=== PATIENT | female | born 1985 | race African-American/Black ===

== ENCOUNTER 2017-01-28 19:17 | Emergency (ER) | payer OTHER ==
[~2017-01-28] VITALS: Ht 162.6 cm; Wt 68.2 kg
[~2017-01-28 19:17] MED LIST: ACET1TAB40 PO; AUG875 PO; BACTDS PO; CEPH-443 PO; IBUP-1542 PO; IBUP800T25 PO; ONDA4TAB35 PO
[2017-01-28 19:22] VITALS: Ht 162.6 cm; Wt 68.2 kg
[2017-01-28] MEDS ORDERED: ONDANSETRON (ODT) 4 MG TAB ODT STA ×2 (21:17→22:22)
[2017-01-28] MEDS ORDERED: HYDROCODONE/APAP (5/325) TAB PO ONE (21:30)
[2017-01-28] MEDS ORDERED: LIDOCAINE 1%/EPI 30 ML INJ INJ STA (21:35)
[2017-01-28] MEDS ORDERED: BUPIVACAINE 0.5% 30 ML VIAL INJ ONE (22:00)
[2017-01-28] MEDS ORDERED: HYDR-906 PO (22:08)
--- NOTE | 2017-01-28 22:08 | RADRPT ---
PROCEDURE: Left knee. CLINICAL INDICATION: Pain. TECHNIQUE: 4 views including AP, lateral and oblique views of the left knee were obtained. The i mages reviewed on a PACS workstation. COMPARISON: 06/06/2015. FINDINGS: There is no fracture, dislocation or bone destruction. There is no significant joint space narrowin g. There is a small joint effusion. Bone mineralization is within normal limits. There is no radio paque foreign body or abnormal calcification. IMPRESSION: No evidence of fracture. Small joint effusion. .Chris Granados MD, Date Time Electronically viewed and signed by .Chris Granados MD, on 01/28/2017 22:07 .T/
[2017-01-28] MEDS ORDERED: HYDROmorphONE 1 MG/ML SYG IM STA (22:22)
--- NOTE | 2017-01-29 00:05 | ERD ---
ER Documentation Chief Complaint Chief Complaint chronic left knee pain HPI 31-year-old female complaining of chronic left knee pain. She states that she had a fractured knee 2 years ago and ever since has had continued problem. Denies any acute injuries today but feels her knee locked up on her. Patient is doing physical therapy with no alleviation of symptoms. Has not taken medications for symptoms. Denies any numbness or tingling to extremities. Is unable to flex and extend at the knee secondary to pain. Surgical history denies. Denies medical problems. Allergies to morphine ROS All systems reviewed and are negative except as per history of present illness. Medications Home Meds Active Scripts Hydrocodone/Acetaminophen ([place] 5-325 Tablet) 1 Each Tablet, 1 TAB PO Q6H Y for PAIN, #7 TAB Prov:BONITA WOLF PA-C 01/28/17 Ibuprofen* (Motrin*) 800 Mg Tab, 800 MG PO Q6H Y for PAIN AND OR ELEVATED TEMP, #30 TAB Prov:MACKENZIE CROSS MD 10/31/15 Sulfamethoxazole-Trimethoprim* (Bactrim* DS) 800-160 Mg Tab, 1 TAB PO BID for 7 Days, TAB Prov:MACKENZIE CROSS MD 10/31/15 Cephalexin* (Keflex*) 500 Mg Capsule, 500 MG PO QID for 7 Days, CAP Prov:MACKENZIE CROSS MD 10/31/15 Ondansetron Hcl* (Zofran* ODT) 4 mg -ODT Tab.disper, 4 MG PO Q6 Y for NAUSEA AND /OR VOMITING, #10 TAB Prov:GIOVANNY VIRK PA-C 07/31/15 Ibuprofen* (Motrin*) 800 Mg Tab, 800 MG PO Q6, #15 TAB Prov:OSCAR BYERS NP 06/06/15 Acetaminophen-Codeine* (Acetaminophen-Cod #3*) 300-30 Mg Tab, 1 TAB PO Q4H Y for PAIN, #7 TAB Prov:OSCAR BYERS NP 06/06/15 Ibuprofen* (Ibuprofen*) 600 Mg Tablet, 600 MG PO Q6, #20 TAB Prov:GIOVANNY VIRK PA-C 08/10/14 Amoxicillin-Clavulanate K* (Augmentin*) 875 Mg Tab, 875 MG PO BID for 7 Days, TAB Prov:GIOVANNY VIRK PA-C 08/10/14 Allergies Allergies: Coded Allergies: morphine (Verified Allergy, Mild, ITCHINESS, 06/06/15) PMhx/Soc History of Surgery: Yes (Cyst ) Anesthesia Reaction: No Hx Neurological Disorder: No Hx Respiratory Disorders: No Hx Cardiac Disorders: No Hx Psychiatric Problems: No Hx Miscellaneous Medical Probl: No Hx Alcohol Use: Yes Hx Substance Use: No Hx Tobacco Use: No Smoking Status: Unknown if ever smoked Physical Exam Vitals Vital Signs Date Time Temp Pulse Resp B/P Pulse Ox O2 Delivery O2 Flow Rate FiO2 01/28/17 19:22 98.9 111 20 135/76 100 Physical Exam GENERAL: The patient is well-appearing, well-nourished, in no acute distress CHEST: Clear to auscultation bilaterally. There are no rales, wheezes or rhonchi. HEART: Regular rate and rhythm. No murmurs, clicks, rubs or gallops. No S3 or S4. EXTREMITIES: Patella midline. Patient unable to flex extend of the left knee. No obvious effusion or deformity. No valgus or varus deformity. Mild tenderness palpation over the patella. Compartments soft. No erythema noted to the joint space. NEUROLOGIC: Alert and oriented. Cranial nerves II through XII intact. Motor strength in all 4 extremities with 5 out of 5 strength. Sensation grossly intact. Normal speech and gait. Babinski negative. DTR 2+ throughout. SKIN: There is no apparent rash or petechiae. The skin is warm and dry. Results 24 hrs Current Medications Medications (Trade) Dose Ordered Sig/Kayla Route PRN Reason Start Time Stop Time Status Last Admin Dose Admin Acetaminophen/ Hydrocodone Bitart ([place] (5/325)) 1 tab ONCE ONCE PO 01/28/17 21:30 01/28/17 21:31 DC 01/28/17 21:22 Ondansetron HCl (Zofran Odt) 4 mg ONCE STAT ODT 01/28/17 21:17 01/28/17 21:18 DC 01/28/17 21:23 Bupivacaine HCl ([place] 0.5%) 30 ml ONCE ONCE INJ 01/28/17 22:00 01/28/17 22:01 DC Lidocaine/ Epinephrine (Xylocaine 1%/ Epi (Pf)) 30 ml ONCE STAT INJ 01/28/17 21:35 01/28/17 21:37 DC Hydromorphone HCl (Dilaudid) 1 mg ONCE STAT IM 01/28/17 22:22 01/28/17 22:24 DC 01/28/17 22:43 Ondansetron HCl (Zofran Odt) 4 mg ONCE STAT ODT 01/28/17 22:22 01/28/17 22:24 DC 01/28/17 22:39 Procedures/MDM DIAGNOSTIC IMAGING REPORT Patient: RAY SHRESTHA : 1985 Age: 31 Sex: F MR #: [id number] DOS: 01/28/17 194 Ordering MD: IBAN WOLF PA-C Location: [facility] Room/Bed: PROCEDURE: Left knee. CLINICAL INDICATION: Pain. TECHNIQUE: 4 views including AP, lateral and oblique views of the left knee were obtained. The images reviewed on a PACS workstation. COMPARISON: 06/06/2015. FINDINGS: There is no fracture, dislocation or bone destruction. There is no significant joint space narrowing. There is a small joint effusion. Bone mineralization is within normal limits. There is no radiopaque foreign body or abnormal calcification. IMPRESSION: No evidence of fracture. Small joint effusion. ER course: 7cc bupivacaine and 3 cc Lidocaine with epi injected into the knee space via sterile procedure. Knee attempted to be reduced however unsuccessful. Knee immobilizer placed patient was neuro intact pre-and post splint application. Crutches given. [place] and Dilaudid given in ED with Zofran. Patient's pain had improved at the time of discharge per MDM: 31-year-old female complaining of left knee pain. I have low suspicion for acute fracture dislocation. I have low suspicion for septic joint. I have low suspicion for valgus or varus tendon or ligament injury. Patient is placed in the immobilizer and recommend follow-up with orthopedics in the PMD within 1- 2 days for close evaluation. Patient is told symptoms change or worsen to return the ER. All questions answered discharge. Departure Diagnosis: Primary Impression: Knee pain Condition: Stable Patient Instructions: Knee Pain, Uncertain Cause Referrals: [facility] (PCP) Additional Instructions: FOLLOW UP WITH YOUR PRIMARY CARE PHYSICIAN TOMORROW.Return to this facility if you are not improving as expected. BONITA WOLF PA-C Jan 29, 2017 00:05
== END 2017-01-28 23:58 | disposition home or self-care (01) ==
LOC: FTE 19:17
DX: M25.562 Pain in left knee (principal)
CPT/HCPCS: 29505; 73562; 96372; J1170; Z7502; Z7610

== ENCOUNTER 2017-10-25 09:03 | Emergency (ER) | END 2017-10-25 10:30 | disposition home or self-care (01) ==

== ENCOUNTER 2018-05-24 10:03 | Emergency (ER) | payer SELFPAY ==
[~2018-05-24] VITALS: Ht 160 cm; Wt 66.0 kg
[~2018-05-24 10:03] MED LIST changes: +HYDR-4011 PO; -IBUP800T25 PO; +IBUP800T48 PO; +SULF1TAB31 PO
[2018-05-24 10:08] VITALS: BP 139/77; PULSE 92; RESP 19; Ht 160 cm; Wt 66.0 kg
== END 2018-05-24 13:14 | disposition left against medical advice (07) ==
LOC: FTE 10:03
DX: Z53.21 Procedure and treatment not carried out due to patient leaving prior to being seen by health care provider (principal)